=== PATIENT | female | born 1965 | race African-American/Black ===

== ENCOUNTER → 2017-07-08 | Outpatient (CLI) | payer OTHER ==
--- NOTE | 2017-07-08 14:43 | RAD ---
DATE: 07/08/2017 EXAM: DIGITAL DIAGNOSTIC BILATERAL, BREAST LEFT HISTORY: Breast lump, skin discoloration COMPARISON: None available This study was interpreted with the benefit of Computerized Aided Detection (CAD). The breast parenchyma is primarily fatty replaced. Breast parenchyma level density A. FINDINGS: A marker was placed over the skin surface in the area of clinical concern at the 10 o'clock location. No breast mass is identified. Minimal benign type calcifications are present on the left. No suspicious microcalcifications are evident. Left breast ultrasound, 07/08/2017: A targeted ultrasound exam of the area of concern at the 10:00 location, approximately 20 cm from the nipple, was performed. There is hypoechoic skin thickening in in this region there are minimal linear hypoechoic areas within the underlying subcutaneous fat, probably representing inflammation. No discrete breast mass is seen. IMPRESSION: Nonspecific skin thickening with mild underlying streaky subcutaneous edema in the area of clinical concern at the 10:00 location in the left breast. No discrete underlying breast mass is seen mammographically or sonographically. This is likely an inflammatory or neoplastic skin lesion. A breast lesion invading the skin is less likely. Dermatologic consultation is suggested. BI-RADS CATEGORY: 3 PROBABLY BENIGN FINDING(S)-SHORT INTERVAL FOLLOW-UP SUGGESTED RECOMMENDED FOLLOW-UP: CLIN FOLLOW UP IMAGING CLINICALLY INDICATED PQRS compliance statement: Patient information was entered into a reminder system with a target due date for the next mammogram. Mammography is a sensitive method for finding small breast cancers, but it does not detect them all and is not a substitute for careful clinical examination. A negative mammogram does not negate a clinically suspicious finding and should not result in delay in biopsying a clinically suspicious abnormality. "Our facility is accredited by the [employer] Mammography Program."
== END | disposition home or self-care (01) ==
LOC: MAMMO 12:57
PROVIDERS: ATTEND Nurse Practitioner Family
DX: N63 Unspecified lump in breast (principal)
CPT/HCPCS: 76641; G0204; 77066

== ENCOUNTER → 2017-07-30 | Outpatient (CLI) | payer OTHER ==
[2017-07-30 15:47] LABS: BASO # 0.1 x10^3/uL (0.0-0.2); BASO % 1 % (0-3); EOS % 1 % (0-3); HEMATOCRIT 40.7 % (36.0-47.0); HEMOGLOBIN 13.7 g/dL (12.0-15.5); LYMPH # 2.4 x10^3/uL (1.0-4.8); LYMPH % 37 % (24-48); MEAN CORPUSCULAR HEMOGLOBIN 28 pg (25-35); MEAN CORPUSCULAR HGB CONC 34 g/dL (31-37); MEAN CORPUSCULAR VOLUME 83 fL (79-100); MONO % 5 % (0-9); NEUT % 56 % (31-73); PLATELET COUNT 263 x10^3/uL (140-400); RED BLOOD COUNT 4.91 x10^6/uL (3.50-5.40); RED CELL DISTRIBUTION WIDTH 13.3 % (11.5-14.5); WHITE BLOOD COUNT 6.4 x10^3/uL (4.0-11.0)
[2017-07-30 15:59] LABS: CREATININE 0.9 mg/dL (0.6-1.0); GFR 80.2
== END | disposition home or self-care (01) ==
LOC: LAB 15:26
PROVIDERS: ATTEND Psychiatry & Neurology Neurology
DX: S06.0X0S Concussion without loss of consciousness, sequela (principal); X58.XXXS Exposure to other specified factors, sequela
CPT/HCPCS: 36415; 82565; 82947; 84520; 85025; 85651; 86141

== ENCOUNTER → 2017-08-05 | Outpatient (CLI) | payer OTHER ==
[~2017-08-05] MED LIST: AMLO2.5T2 PO; LISI1TAB3 PO; NALT1TAB PO
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
== END | disposition home or self-care (01) ==
LOC: RT 10:22
PROVIDERS: ATTEND Psychiatry & Neurology Neurology
DX: S06.0X0S Concussion without loss of consciousness, sequela (principal); G93.2 Benign intracranial hypertension; R06.4 Hyperventilation; X58.XXXS Exposure to other specified factors, sequela
CPT/HCPCS: 95816

== ENCOUNTER → 2017-08-08 | Outpatient (CLI) | payer OTHER ==
[~2017-08-08] MED LIST changes: +GADOBUTROL 10 MMOL/10 ML VIAL IV ONE
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
== END | disposition home or self-care (01) ==
LOC: MRI 14:50
PROVIDERS: ATTEND Psychiatry & Neurology Neurology
DX: S06.0X0S Concussion without loss of consciousness, sequela (principal); G93.2 Benign intracranial hypertension; X58.XXXS Exposure to other specified factors, sequela
CPT/HCPCS: 70553; A9585